=== PATIENT | female | born 1955 | race Caucasian/White ===

== ENCOUNTER 2016-10-01 18:32 | Emergency (ER) | payer OTHER ==
[~2016-10-01 18:32] MED LIST: DARV PO; ERYT250 PO; ESTR0.5T9 PO; ONDA1TAB16 PO; REST15CA PO
[2016-10-01 18:39] VITALS: BP 128/72; PULSE 71; RESP 16; TEMP 98.3; O2SAT 97
== END 2016-10-01 20:54 | disposition left against medical advice (07) ==
LOC: PHED 18:32
DX: R10.9 Unspecified abdominal pain (principal); K92.1 Melena; Z53.21 Procedure and treatment not carried out due to patient leaving prior to being seen by health care provider
CPT/HCPCS: 99281